=== PATIENT | female | born 1930 | race African-American/Black ===

== ENCOUNTER 2016-12-24 18:00 | Emergency (ER) | payer MEDICARE, MEDICAID ==
[~2016-12-24] VITALS: Ht 137.2 cm; Wt 46.0 kg
[2016-12-24] MEDS ORDERED: ACETAMINOPHEN 325MG TABLET PO ONE (19:00)
[2016-12-24 20:41] VITALS: BP 119/57
== END 2016-12-25 04:41 | disposition home or self-care (01) ==
LOC: ER 12-25 00:51
DX: S09.8XXA Other specified injuries of head, initial encounter (principal); W18.12XA Fall from or off toilet with subsequent striking against object, initial encounter; Y93.F9 Activity, other caregiving; Y92.89 Other specified places as the place of occurrence of the external cause; I10 Essential (primary) hypertension; I50.9 Heart failure, unspecified; Z85.79 Personal history of other malignant neoplasms of lymphoid, hematopoietic and related tissues; Z98.890 Other specified postprocedural states; Z92.21 Personal history of antineoplastic chemotherapy
CPT/HCPCS: 70450; 99284